=== PATIENT | female | born 1990 | race Caucasian/White ===

== ENCOUNTER 2018-04-27 14:47 | Outpatient (CLI) | payer OTHER | END 2018-04-27 14:56 | disposition home or self-care (01) | LOC: MAMO-SONO 14:47 | DX: Z12.31 Encounter for screening mammogram for malignant neoplasm of breast (principal); N60.11 Diffuse cystic mastopathy of right breast; N60.12 Diffuse cystic mastopathy of left breast ==

== ENCOUNTER → 2023-07-21 14:56 | Outpatient (CLI) | payer OTHER | END | disposition home or self-care (01) | LOC: PRENATAL 14:56 | PROVIDERS: ATTEND Obstetrics & Gynecology Maternal & Fetal Medicine | DX: O35.3XX0 Maternal care for (suspected) damage to fetus from viral disease in mother, not applicable or unspecified (principal); O44.00 Complete placenta previa NOS or without hemorrhage, unspecified trimester; Z3A.19 19 weeks gestation of pregnancy ==

== ENCOUNTER 2023-08-18 09:09 | Outpatient (CLI) | payer OTHER | END 2023-08-18 09:11 | disposition home or self-care (01) | LOC: PRENATAL 09:09 | PROVIDERS: ATTEND Obstetrics & Gynecology Maternal & Fetal Medicine | DX: O26.849 Uterine size-date discrepancy, unspecified trimester (principal); O60.00 Preterm labor without delivery, unspecified trimester; O26.879 Cervical shortening, unspecified trimester; Z3A.23 23 weeks gestation of pregnancy ==

== ENCOUNTER → 2023-10-20 15:36 | Outpatient (CLI) | payer OTHER | END | disposition home or self-care (01) | LOC: PRENATAL 15:36 | PROVIDERS: ATTEND Obstetrics & Gynecology Maternal & Fetal Medicine | DX: O26.849 Uterine size-date discrepancy, unspecified trimester (principal); O36.8199 Decreased fetal movements, unspecified trimester, other fetus; Z3A.32 32 weeks gestation of pregnancy ==

== ENCOUNTER 2023-12-20 09:00 | Outpatient (CLI) | payer OTHER | END 2023-12-20 09:01 | disposition home or self-care (01) | LOC: PRENATAL 09:00 | PROVIDERS: ATTEND Obstetrics & Gynecology Maternal & Fetal Medicine | DX: O26.849 Uterine size-date discrepancy, unspecified trimester (principal); O36.8199 Decreased fetal movements, unspecified trimester, other fetus; O41.00X0 Oligohydramnios, unspecified trimester, not applicable or unspecified; Z3A.41 41 weeks gestation of pregnancy ==